=== PATIENT | male | born 1975 | race Caucasian/White ===

== ENCOUNTER 2018-03-20 18:20 | Emergency (ER) | payer OTHER ==
[~2018-03-20] VITALS: Ht 182.9 cm; Wt 80.0 kg
[2018-03-20 18:53] VITALS: BP 140/91
[2018-03-20] MEDS ORDERED: TETanus/Pertussis (Acell)/Diphther VAC/PF (Tdap-Adult) 0.5ml syringe IM ONE (20:15)
[2018-03-20] MEDS ORDERED: LIDOcaine 1%/PF 5ML 10 MG/ML VIAL IJ ONE (20:15)
[2018-03-20] MEDS ORDERED: LORazepam 2 mg/ml vial ONE (21:01)
[2018-03-20] MEDS ORDERED: TETanus/Pertussis (Acell)/Diphther VAC/PF (Tdap-Adult) 0.5ml syringe IMVAC ONE (21:10)
[2018-03-20] MEDS ORDERED: CEPH500C2 PO (21:15)
[2018-03-20] MEDS ORDERED: cephalexin 250mg capsule PO ONE (21:15)
[2018-03-20] MEDS ORDERED: NAPR-56 PO (21:15)
== END 2018-03-20 21:39 | disposition home or self-care (01) ==
LOC: ER 18:21
DX: S61.211A Laceration without foreign body of left index finger without damage to nail, initial encounter (principal); Z88.5 Allergy status to narcotic agent; Z79.899 Other long term (current) drug therapy; W26.0XXA Contact with knife, initial encounter; Y93.89 Activity, other specified; Y92.89 Other specified places as the place of occurrence of the external cause; Y99.8 Other external cause status
CPT/HCPCS: 12001; 73130; 90471; 90715; 99284; J2001; J2060